=== PATIENT | male | born 1970 | race American Indian/Alaskan Native ===

== ENCOUNTER 2017-04-09 05:54 | Day surgery (SDC) | payer MEDICARE ==
[~2017-04-09 05:54] MED LIST: ANCEF/STERILE WATER 2 GM/20 ML 2 GM/20 ML SYRINGE IV SCH; DECADRON IV ONE
[2017-04-09] MEDS ORDERED: NACL BACTERIOSTATIC INFILTRATI ONE (06:39)
[2017-04-09] MEDS ORDERED: ANTIBIOTIC OINT TP ONE (06:49)
[2017-04-09] MEDS ORDERED: DECADRON ONE (06:49)
[2017-04-09] MEDS ORDERED: XYLOCAINE 1% 20 mL ONE (06:50)
[2017-04-09] MEDS ORDERED: MARCAINE 0.25% INFILTRATI ONE ×3 (06:50→07:35)
[2017-04-09] MEDS ORDERED: SUBLIMAZE ONE (07:04)
[2017-04-09] MEDS ORDERED: DIPRIVAN 10 MG/ML IV ONE (07:04)
[2017-04-09] MEDS ORDERED: XYLOCAINE MPF 2% ONE (07:06)
--- NOTE | 2017-04-09 07:20 | Anesthesia Consultation ---
Anesthesia Consult and Med Hx - Airway Anesthetic Teeth Evaluation: Poor (some missing teeth) ROM Head & Neck: Adequate Mental/Hyoid Distance: Adequate Mallampati Class: Class I Intubation Access Assessment: Good - Pulmonary Exam CTA: Yes - Cardiac Exam Cardiac Exam: RRR - Pre-Operative Health Status ASA Pre-Surgery Classification: ASA2 Proposed Anesthetic Plan: Local, MAC - Pulmonary Hx Smoking: Yes (1/4 PPD) Hx Sleep Apnea: No (MARIAH PRE SCREEN HIGH RISK) - Cardiovascular System Hx Hypertension: Yes (X 1 YR) Hx Heart Attack/AMI: No Hx Angina: No - Endocrine Hx Cirrhosis: No - Other Systems Hx Cancer: No
[2017-04-09] MEDS ORDERED: VERSED ONE (07:22)
[2017-04-09] MEDS ORDERED: LACTATED RINGERS 0 ML ONE (07:23)
[2017-04-09] MEDS ORDERED: XYLOCAINE 1% 20 mL INFILTRATI ONE ×2 (07:35)
[2017-04-09] MEDS ORDERED: DECADRON IV ONE (08:49)
--- NOTE | 2017-04-09 09:39 | XRay Report ---
LEFT FOOT, 3 views: History: Bunionectomy. Surgical changes are noted in the distal first metatarsal consistent with bunionectomy. No acute fracture or joint pathology. IMPRESSION: Surgical changes consistent with bunionectomy.
[2017-04-09 11:59] VITALS: BP 128/78
--- NOTE | 2017-04-09 14:15 | Anesthesia Day of Surgery ---
Anesthesia Day of Surgery - Day of Surgery Patient Examined: Yes Patient H&P Reviewed: Yes Patient is NPO: Yes
--- NOTE | 2017-04-09 14:15 | Post Anesthesia Evaluation ---
- Post Anesthesia Evaluation Patient Participated: Yes Airway Patent: Yes Stable Respiratory Function: Yes Nausea/Vomiting: No Temp > 96.8F: Yes Pain Manageable: Yes Adequeate Hydration: Yes Anesthesia Complications: No
--- NOTE | 2017-04-10 22:22 | Operative Report ---
PREOPERATIVE DIAGNOSIS: Severe bunion, left foot. POSTOPERATIVE DIAGNOSIS: Severe bunion, left foot. PROCEDURE: Z bunionectomy, double osteotomy with ostectomy of proximal phalanx. SURGEON: Dillon Beyer DPM ANESTHESIA: Local with monitored anesthesia care. TOURNIQUET: Pneumatic ankle tourniquet, left ankle. ESTIMATED BLOOD LOSS: Less than 10 mL. DESCRIPTION OF PROCEDURE: The patient was brought into the operating room, placed on the operating table in supine position. Following intravenous sedation, the patient was given 2 grams Ancef prophylactically. At this time, attention was directed to the left ankle and with well-padded Webril was placed 2-3 cm proximal to medial and lateral malleolus. An Esmarch and tourniquet was thus placed on the affected ankle. At this time, 12 mL of a 1:1 mixture of 1% lidocaine plain plus 0.25% Marcaine plain was infiltrated into the left foot via a Amaro block. To be noted, the area was cleansed with alcohol prior to injection. At this time, the foot was then scrubbed, prepped and draped in the usual aseptic manner and the procedure was thus begun after exsanguinating the foot with 250 mmHg with an Esmarch. At this time, attention was directed to a severe bunion and with an 8 cm lineal longitudinal incision was made distally from the hallux interphalangeal joint proximally, medially at the bifurcation of the dorsal and plantar skin. At this time, both sharp and blunt dissection was carried deep and care was taken to protect all vital neurovascular structures as needed. At this time, the dissection carried deep down to the first metatarsophalangeal joint in which a prominent bone was noted. At this time, a capsulotomy was thus performed. Exposure of the first metatarsophalangeal joint was thus performed with the use of a sagittal bone saw about 3 mm wedge. The bone was removed medially from the proximal phalanx along with the dorsal 2 mm wedge being removed. Also, 2 mm wedge was removed from the proximal aspect of the base of the proximal phalanx. There still need to be further reduction deformity and via a medial approach lateral resections and serial section of tissues adductor in nature was performed. There was still noted to be further reduction after loading of the foot. So at this time, a Z-osteotomy was performed at the shaft and head of the first metatarsal and capital fragment was thus retracted and shifted laterally and there was noted to be good response and reduction of the deformity and via AO techniques cannulated screws 14 mm in nature was placed across the osteotomy site and all excessive bone was thus removed without incident and contoured with a rotating football bur. A V-shaped capsulotomy was performed at the medial aspect of the calf to help reduce deformity and flushed copiously with normal sterile saline. The screw was reinforced and tightened and there was noted to be good sturdy stability at the fracture site. At this time, deep closure was performed with 3-0 Vicryl followed by 4-0 Vicryl subcutaneous tissue followed by subcuticular Prolene. At this time, 1 mL of dexamethasone phosphate infiltrated to the site followed by Steri-Strips and bacitracin ointment and Adaptic, sterile compressive dressing. The patient had a prompt hyperemic response after the pneumatic ankle tourniquet was deflated and all toes revealed capillary refill time of less than 3 seconds. The patient tolerated procedure and anesthesia well. X-rays were taken in the OR and noted to be good reduction of deformity. The patient will be transferred to recovery and discharged home with weightbearing with Aircast boot. JOB# [id number] ARY/JALEEL
== END 2017-04-09 11:20 | disposition home or self-care (01) ==
LOC: OR 05:54
PROVIDERS: ATTEND Podiatrist Foot & Ankle Surgery
DX: M21.612 Bunion of left foot (principal); I10 Essential (primary) hypertension; F17.200 Nicotine dependence, unspecified, uncomplicated
CPT/HCPCS: 28299; 73620; 88304; 88311; C1713; J0690; J1100; J2250; J2704; J3010; J7120

== ENCOUNTER 2017-06-11 09:00 | Day surgery (SDC) | payer MEDICARE ==
[~2017-06-11 09:00] MED LIST changes: -ANCEF/STERILE WATER 2 GM/20 ML 2 GM/20 ML SYRINGE IV SCH; +ANCEF/STERILE WATER 2 GM/20 ML IV NR; +LACTATED RINGERS 1,000 ML IV SCH; +MARCAINE 0.25% INFILTRATI ONE; +VERSED IV NR; +XYLOCAINE 1% 20 mL INFILTRATI ONE
[2017-06-11] MEDS ORDERED: DIPRIVAN 10 MG/ML IV ONE (09:21)
[2017-06-11] MEDS ORDERED: XYLOCAINE MPF 2% ONE (09:21)
[2017-06-11] MEDS ORDERED: DILAUDID ONE (09:21)
[2017-06-11] MEDS ORDERED: VERSED ONE (09:22)
[2017-06-11] MEDS ORDERED: NACL BACTERIOSTATIC INFILTRATI ONE (09:28)
[2017-06-11] MEDS ORDERED: DILAUDID IV PRN (09:35)
--- NOTE | 2017-06-11 09:35 | Anesthesia Consultation ---
Anesthesia Consult and Med Hx Date of service: 06/11/17 - Airway Anesthetic Teeth Evaluation: Poor ROM Head & Neck: Adequate Mental/Hyoid Distance: Adequate Mallampati Class: Class II Intubation Access Assessment: Probably Good - Pulmonary Exam CTA: Yes - Cardiac Exam Cardiac Exam: RRR - Pre-Operative Health Status ASA Pre-Surgery Classification: ASA2 Proposed Anesthetic Plan: General, MAC - Pulmonary Hx Smoking: Yes (1/ PPD) Hx Sleep Apnea: No (MARIAH PRE SCREEN HIGH RISK.) - Cardiovascular System Hx Hypertension: Yes (X 1 YR) Hx Heart Attack/AMI: No Hx Angina: No - Endocrine Hx Cirrhosis: No - Other Systems Hx Cancer: No - Additional Comments Anesthesia Medical History Comments: Tolearted anesthesia in [place]
--- NOTE | 2017-06-11 09:35 | Anesthesia Day of Surgery ---
Anesthesia Day of Surgery - Day of Surgery Patient Examined: Yes Patient H&P Reviewed: Yes Patient is NPO: Yes
[2017-06-11] MEDS ORDERED: ANTIBIOTIC OINT TP ONE (09:44)
[2017-06-11] MEDS ORDERED: XYLOCAINE 1% 20 mL ONE (09:44)
[2017-06-11] MEDS ORDERED: MARCAINE 0.25% INFILTRATI ONE (09:44)
[2017-06-11] MEDS ORDERED: TORADOL IV ONE (11:18)
[2017-06-11 14:56] VITALS: BP 110/72
--- NOTE | 2017-06-12 07:22 | XRay Report ---
LEFT FOOT, ONE VIEW History: Painful hardware in left foot Findings: 2 lateral fluoroscopic images of the left foot were obtained during surgery which demonstrates removal of a screw in the mid to distal left foot. One screw remains on the final image. Please correlate with the procedural report by Dr. Beyer as needed. Impression: Screw removal from the left foot.
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
== END 2017-06-11 12:20 | disposition home or self-care (01) ==
LOC: OR 09:00
PROVIDERS: ATTEND Podiatrist Foot & Ankle Surgery
DX: T84.84XA Pain due to internal orthopedic prosthetic devices, implants and grafts, initial encounter (principal); Y83.8 Other surgical procedures as the cause of abnormal reaction of the patient, or of later complication, without mention of misadventure at the time of the procedure; F17.200 Nicotine dependence, unspecified, uncomplicated; I10 Essential (primary) hypertension
CPT/HCPCS: 20680; 73620; 88300; J0690; J1100; J1170; J1885; J2250; J2704; J7120; 88302

== ENCOUNTER 2020-03-18 09:55 | Outpatient (CLI) | payer MEDICARE ==
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
== END 2020-03-18 09:56 | disposition home or self-care (01) ==
LOC: US 09:55
PROVIDERS: ATTEND Obstetrics & Gynecology Gynecologic Oncology
DX: S51.822A Laceration with foreign body of left forearm, initial encounter (principal); X58.XXXA Exposure to other specified factors, initial encounter; Y93.89 Activity, other specified; Y92.89 Other specified places as the place of occurrence of the external cause; Y99.8 Other external cause status

== ENCOUNTER 2020-03-22 05:53 | Day surgery (SDC) | payer MEDICARE ==
[2020-03-22] MEDS ORDERED: LACTATED RINGERS 1,000 ML IV SCH (06:00)
[2020-03-22] MEDS ORDERED: MIDAZOLAM 2 MG/2 ML INJ IV NR (06:00)
--- NOTE | 2020-03-22 08:31 | Anesthesia Consultation ---
Anesthesia Consult and Med Hx Date of service: 03/22/20 - Airway Anesthetic Teeth Evaluation: Poor ROM Head & Neck: Adequate Mental/Hyoid Distance: Adequate Mallampati Class: Class II Intubation Access Assessment: Probably Good - Pulmonary Exam CTA: Yes - Cardiac Exam Cardiac Exam: RRR - Pre-Operative Health Status ASA Pre-Surgery Classification: ASA2 Proposed Anesthetic Plan: MAC - Pulmonary Hx Smoking: Yes (02/21-02/19 PPD) Hx Respiratory Symptoms: No Hx Sleep Apnea: No (MARIAH PRE SCREEN HIGH RISK) - Cardiovascular System Hx Hypertension: Yes Hx Heart Attack/AMI: No - Central Nervous System Hx Neuromuscular Disorder: No (LUE neuropathy) CVA: Yes (remote hx TIA) Hx Back Pain: Yes - Endocrine Hx Renal Disease: No Hx Liver Disease: No Hx Insulin Dependent Diabetes: No Hx Non-Insulin Dependent Diabetes: No Hx Thyroid Disease: No - Other Systems Hx Obesity: No
--- NOTE | 2020-03-22 08:31 | Anesthesia Day of Surgery ---
Anesthesia Day of Surgery - Day of Surgery Patient Examined: Yes Patient H&P Reviewed: Yes Patient is NPO: Yes
[2020-03-22] MEDS ORDERED: HYDROmorphone 1 MG/1 ML INJ ONE (09:29)
[2020-03-22] MEDS ORDERED: MIDAZOLAM 2 MG/2 ML INJ ONE (09:29)
[2020-03-22] MEDS ORDERED: LIDOCAINE MPF (2%) 20 MG/1 ML VIAL 5 ML ONE (09:30)
[2020-03-22] MEDS ORDERED: propofoL 200 MG/20 ML VIAL IV ONE (09:30)
[2020-03-22] MEDS ORDERED: ceFAZolin/Water 2 GM/20 ML 2 GM/20 ML SYRINGE IV ONE (09:36)
[2020-03-22] MEDS ORDERED: ceFAZolin/STERILE WATER 2 GM/20 ML SYRINGE IV NR (09:42)
[2020-03-22] MEDS ORDERED: BUPIVACAINE/PF (0.25%) 2.5 MG/ML 30 ML VIAL INFILTRATI ONE (10:22)
[2020-03-22] MEDS ORDERED: SODIUM CHLORIDE 0.9% IRR 1,500 ML BOTTLE IR ONE (10:23)
[2020-03-22] MEDS ORDERED: LIDOCAINE (1%) 10 MG/1 ML VIAL 20 ML MDV INFILTRATI ONE (10:23)
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
[2020-03-22 11:26] VITALS: BP 130/81
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
== END 2020-03-22 11:35 | disposition home or self-care (01) ==
LOC: OR 05:53
PROVIDERS: ATTEND Surgery
DX: S50.852A Superficial foreign body of left forearm, initial encounter (principal); I10 Essential (primary) hypertension; J45.909 Unspecified asthma, uncomplicated; F17.210 Nicotine dependence, cigarettes, uncomplicated; G43.909 Migraine, unspecified, not intractable, without status migrainosus; Z90.49 Acquired absence of other specified parts of digestive tract; Z86.19 Personal history of other infectious and parasitic diseases; Z79.899 Other long term (current) drug therapy; Z98.890 Other specified postprocedural states; Z86.73 Personal history of transient ischemic attack (TIA), and cerebral infarction without residual deficits; X58.XXXA Exposure to other specified factors, initial encounter; Y93.89 Activity, other specified; Y92.89 Other specified places as the place of occurrence of the external cause; Y99.8 Other external cause status
CPT/HCPCS: 25248; 88300; J0690; J1170; J2250; J2704; J7120; U0003